=== PATIENT | male | born 1995 | race Caucasian/White ===

== ENCOUNTER 2022-12-10 17:25 | Emergency (ER) | payer MEDICAID, OTHER ==
[~2022-12-10] VITALS: Ht 190.5 cm; Wt 139.5 kg
[2022-12-10] MEDS ORDERED: IBUP-1022 PO (17:44)
[2022-12-10] MEDS ORDERED: TRAZ1TAB14 PO (17:44)
[2022-12-10] MEDS ORDERED: METOCLOPRAMIDE INJ 10MG/2ML VIAL IV ONE (21:15)
[2022-12-10] MEDS ORDERED: diphenhydrAMINE 50MG/ML VIAL IV ONE (21:15)
[2022-12-10] MEDS ORDERED: ACETAMINOPHEN 500 MG TAB PO ONE (21:15)
[2022-12-10] MEDS ORDERED: NS 1,000 ML IV ONE (21:15)
[2022-12-10] MEDS ORDERED: KETOROLAC 30 MG/ML 1ML VIAL IV ONE (23:00)
[2022-12-10] MEDS ORDERED: methocarbamoL 500 MG TAB PO ONE (23:50)
[2022-12-10] MEDS ORDERED: METH-1164 PO (23:52)
[2022-12-11] VITALS: BP 138/72; TEMP 98.3; O2SAT 97
== END 2022-12-11 00:06 | disposition home or self-care (01) ==
LOC: M ED 17:25
DX: G43.909 Migraine, unspecified, not intractable, without status migrainosus (principal); F10.10 Alcohol abuse, uncomplicated; Z79.1 Long term (current) use of non-steroidal anti-inflammatories (NSAID); Z79.899 Other long term (current) drug therapy
CPT/HCPCS: 70450; 96361; 96374; 96375; 99284; J1100; J1200; J1885; J2765